=== PATIENT | female | born 1945 | race American Indian/Alaskan Native ===

== ENCOUNTER 2016-08-19 08:14 | Outpatient (CLI) | payer MEDICARE ==
[2016-08-19] MEDS ORDERED: XYLOCAINE TOPICAL 4% TP ONE ×2 (08:45→08:48)
== END 2016-08-19 08:15 | disposition home or self-care (01) ==
LOC: WOUND 08:14
PROVIDERS: ATTEND Surgery
DX: I87.312 Chronic venous hypertension (idiopathic) with ulcer of left lower extremity (principal); E11.622 Type 2 diabetes mellitus with other skin ulcer; L97.821 Non-pressure chronic ulcer of other part of left lower leg limited to breakdown of skin; J44.9 Chronic obstructive pulmonary disease, unspecified; I11.0 Hypertensive heart disease with heart failure; I50.9 Heart failure, unspecified; G47.30 Sleep apnea, unspecified; M19.90 Unspecified osteoarthritis, unspecified site; E05.90 Thyrotoxicosis, unspecified without thyrotoxic crisis or storm; F03.90 Unspecified dementia, unspecified severity, without behavioral disturbance, psychotic disturbance, mood disturbance, and anxiety; F32.9 Major depressive disorder, single episode, unspecified; Z90.710 Acquired absence of both cervix and uterus; Z87.891 Personal history of nicotine dependence
CPT/HCPCS: 11042; 11045; G0463

== ENCOUNTER 2016-08-26 09:20 | Outpatient (CLI) | payer MEDICARE ==
[2016-08-26] MEDS ORDERED: XYLOCAINE TOPICAL 4% TP ONE ×2 (09:50→10:08)
== END 2016-08-26 09:21 | disposition home or self-care (01) ==
LOC: WOUND 09:20
PROVIDERS: ATTEND Surgery
DX: I87.312 Chronic venous hypertension (idiopathic) with ulcer of left lower extremity (principal); E11.622 Type 2 diabetes mellitus with other skin ulcer; L97.821 Non-pressure chronic ulcer of other part of left lower leg limited to breakdown of skin; J44.9 Chronic obstructive pulmonary disease, unspecified; I11.0 Hypertensive heart disease with heart failure; I50.40 Unspecified combined systolic (congestive) and diastolic (congestive) heart failure; G47.30 Sleep apnea, unspecified; E05.90 Thyrotoxicosis, unspecified without thyrotoxic crisis or storm; M19.90 Unspecified osteoarthritis, unspecified site; F03.90 Unspecified dementia, unspecified severity, without behavioral disturbance, psychotic disturbance, mood disturbance, and anxiety; F32.9 Major depressive disorder, single episode, unspecified; Z90.710 Acquired absence of both cervix and uterus; Z87.891 Personal history of nicotine dependence
CPT/HCPCS: 99214; G0463

== ENCOUNTER 2016-09-02 10:00 | Outpatient (CLI) | payer MEDICARE | END 2016-09-02 10:01 | disposition home or self-care (01) | LOC: WOUND 10:00 | PROVIDERS: ATTEND Surgery | DX: I87.312 Chronic venous hypertension (idiopathic) with ulcer of left lower extremity (principal); E11.622 Type 2 diabetes mellitus with other skin ulcer; L97.821 Non-pressure chronic ulcer of other part of left lower leg limited to breakdown of skin; I11.0 Hypertensive heart disease with heart failure; I50.40 Unspecified combined systolic (congestive) and diastolic (congestive) heart failure; J44.9 Chronic obstructive pulmonary disease, unspecified; F03.90 Unspecified dementia, unspecified severity, without behavioral disturbance, psychotic disturbance, mood disturbance, and anxiety; G47.30 Sleep apnea, unspecified; M19.90 Unspecified osteoarthritis, unspecified site; E05.90 Thyrotoxicosis, unspecified without thyrotoxic crisis or storm; F32.9 Major depressive disorder, single episode, unspecified; Z90.710 Acquired absence of both cervix and uterus; Z87.891 Personal history of nicotine dependence | CPT/HCPCS: 99214; G0463 ==

== ENCOUNTER 2016-11-18 10:00 | Outpatient (CLI) | payer MEDICARE ==
[2016-11-18] MEDS ORDERED: XYLOCAINE TOPICAL 4% TP ONE (10:58)
[2016-11-19] MEDS ORDERED: XYLOCAINE TOPICAL 4% TP ONE (17:07)
== END 2016-11-18 10:01 | disposition home or self-care (01) ==
LOC: WOUND 10:00
PROVIDERS: ATTEND Surgery
DX: E11.621 Type 2 diabetes mellitus with foot ulcer (principal); L97.521 Non-pressure chronic ulcer of other part of left foot limited to breakdown of skin; J44.9 Chronic obstructive pulmonary disease, unspecified; I11.0 Hypertensive heart disease with heart failure; I50.20 Unspecified systolic (congestive) heart failure; F03.90 Unspecified dementia, unspecified severity, without behavioral disturbance, psychotic disturbance, mood disturbance, and anxiety; G47.30 Sleep apnea, unspecified; M19.90 Unspecified osteoarthritis, unspecified site; E05.90 Thyrotoxicosis, unspecified without thyrotoxic crisis or storm; F32.9 Major depressive disorder, single episode, unspecified; Z87.891 Personal history of nicotine dependence
CPT/HCPCS: 11042; G0463

== ENCOUNTER 2016-11-25 09:56 | Outpatient (CLI) | payer MEDICARE ==
[2016-11-25] MEDS ORDERED: XYLOCAINE TOPICAL 4% TP ONE ×2 (10:31→10:42)
== END 2016-11-25 09:57 | disposition home or self-care (01) ==
LOC: WOUND 09:56
PROVIDERS: ATTEND Surgery
DX: E11.621 Type 2 diabetes mellitus with foot ulcer (principal); L97.521 Non-pressure chronic ulcer of other part of left foot limited to breakdown of skin; E11.622 Type 2 diabetes mellitus with other skin ulcer; L97.821 Non-pressure chronic ulcer of other part of left lower leg limited to breakdown of skin; J44.9 Chronic obstructive pulmonary disease, unspecified; I11.0 Hypertensive heart disease with heart failure; I50.9 Heart failure, unspecified; F03.90 Unspecified dementia, unspecified severity, without behavioral disturbance, psychotic disturbance, mood disturbance, and anxiety; M19.90 Unspecified osteoarthritis, unspecified site; F32.9 Major depressive disorder, single episode, unspecified; Z90.710 Acquired absence of both cervix and uterus; Z87.891 Personal history of nicotine dependence

== ENCOUNTER 2016-12-02 10:42 | Outpatient (CLI) | payer MEDICARE ==
[2016-12-02] MEDS ORDERED: XYLOCAINE TOPICAL 4% TP ONE (12:00)
== END 2016-12-02 10:43 | disposition home or self-care (01) ==
LOC: WOUND 10:42
PROVIDERS: ATTEND Surgery
DX: E11.621 Type 2 diabetes mellitus with foot ulcer (principal); L97.521 Non-pressure chronic ulcer of other part of left foot limited to breakdown of skin; I11.0 Hypertensive heart disease with heart failure; I50.9 Heart failure, unspecified; J44.9 Chronic obstructive pulmonary disease, unspecified; F03.90 Unspecified dementia, unspecified severity, without behavioral disturbance, psychotic disturbance, mood disturbance, and anxiety; G47.30 Sleep apnea, unspecified; E11.69 Type 2 diabetes mellitus with other specified complication; M19.90 Unspecified osteoarthritis, unspecified site; E05.90 Thyrotoxicosis, unspecified without thyrotoxic crisis or storm; F32.9 Major depressive disorder, single episode, unspecified; Z90.710 Acquired absence of both cervix and uterus; Z87.891 Personal history of nicotine dependence

== ENCOUNTER 2016-12-09 08:38 | Outpatient (CLI) | payer MEDICARE ==
[2016-12-09] MEDS ORDERED: XYLOCAINE TOPICAL 4% TP ONE (09:27)
== END 2016-12-09 08:39 | disposition home or self-care (01) ==
LOC: WOUND 08:38
PROVIDERS: ATTEND Surgery
DX: E11.621 Type 2 diabetes mellitus with foot ulcer (principal); L97.521 Non-pressure chronic ulcer of other part of left foot limited to breakdown of skin; J44.9 Chronic obstructive pulmonary disease, unspecified; I11.0 Hypertensive heart disease with heart failure; I50.9 Heart failure, unspecified; G47.30 Sleep apnea, unspecified; M19.90 Unspecified osteoarthritis, unspecified site; E05.90 Thyrotoxicosis, unspecified without thyrotoxic crisis or storm; F32.9 Major depressive disorder, single episode, unspecified; F03.90 Unspecified dementia, unspecified severity, without behavioral disturbance, psychotic disturbance, mood disturbance, and anxiety; Z90.710 Acquired absence of both cervix and uterus; Z87.891 Personal history of nicotine dependence

== ENCOUNTER 2016-12-30 14:21 | Outpatient (CLI) | payer MEDICARE ==
[2016-12-30] MEDS ORDERED: XYLOCAINE TOPICAL 4% TP ONE ×2 (14:46→14:51)
== END 2016-12-30 14:22 | disposition home or self-care (01) ==
LOC: WOUND 14:21
PROVIDERS: ATTEND Surgery
DX: E11.621 Type 2 diabetes mellitus with foot ulcer (principal); L97.521 Non-pressure chronic ulcer of other part of left foot limited to breakdown of skin; J44.9 Chronic obstructive pulmonary disease, unspecified; I11.0 Hypertensive heart disease with heart failure; I50.9 Heart failure, unspecified; M19.90 Unspecified osteoarthritis, unspecified site; E05.90 Thyrotoxicosis, unspecified without thyrotoxic crisis or storm; F32.9 Major depressive disorder, single episode, unspecified; F03.90 Unspecified dementia, unspecified severity, without behavioral disturbance, psychotic disturbance, mood disturbance, and anxiety; Z90.710 Acquired absence of both cervix and uterus; Z87.891 Personal history of nicotine dependence

== ENCOUNTER 2017-01-06 08:54 | Outpatient (CLI) | payer MEDICARE ==
[2017-01-06] MEDS ORDERED: XYLOCAINE TOPICAL 4% TP ONE (09:52)
== END 2017-01-06 08:55 | disposition home or self-care (01) ==
LOC: WOUND 08:54
PROVIDERS: ATTEND Surgery
DX: E11.621 Type 2 diabetes mellitus with foot ulcer (principal); L97.521 Non-pressure chronic ulcer of other part of left foot limited to breakdown of skin; E11.622 Type 2 diabetes mellitus with other skin ulcer; L97.821 Non-pressure chronic ulcer of other part of left lower leg limited to breakdown of skin; J44.9 Chronic obstructive pulmonary disease, unspecified; I11.0 Hypertensive heart disease with heart failure; I50.9 Heart failure, unspecified; F03.90 Unspecified dementia, unspecified severity, without behavioral disturbance, psychotic disturbance, mood disturbance, and anxiety; G47.30 Sleep apnea, unspecified; M19.90 Unspecified osteoarthritis, unspecified site; E05.90 Thyrotoxicosis, unspecified without thyrotoxic crisis or storm; F32.9 Major depressive disorder, single episode, unspecified; Z90.710 Acquired absence of both cervix and uterus; Z87.891 Personal history of nicotine dependence

== ENCOUNTER 2017-01-20 11:02 | Outpatient (CLI) | payer MEDICARE ==
[2017-01-20] MEDS ORDERED: XYLOCAINE TOPICAL 4% TP ONE (11:12)
== END 2017-01-20 11:03 | disposition home or self-care (01) ==
LOC: WOUND 11:02
PROVIDERS: ATTEND Surgery
DX: E11.621 Type 2 diabetes mellitus with foot ulcer (principal); E11.622 Type 2 diabetes mellitus with other skin ulcer; L97.521 Non-pressure chronic ulcer of other part of left foot limited to breakdown of skin; L97.821 Non-pressure chronic ulcer of other part of left lower leg limited to breakdown of skin; J44.9 Chronic obstructive pulmonary disease, unspecified; I11.0 Hypertensive heart disease with heart failure; I50.9 Heart failure, unspecified; F03.90 Unspecified dementia, unspecified severity, without behavioral disturbance, psychotic disturbance, mood disturbance, and anxiety; M19.90 Unspecified osteoarthritis, unspecified site; F32.9 Major depressive disorder, single episode, unspecified; E03.9 Hypothyroidism, unspecified; G47.30 Sleep apnea, unspecified; Z90.710 Acquired absence of both cervix and uterus; Z87.891 Personal history of nicotine dependence

== ENCOUNTER 2017-01-27 08:27 | Outpatient (CLI) | payer MEDICARE ==
[2017-01-27] MEDS ORDERED: XYLOCAINE TOPICAL 4% TP ONE (08:42)
== END 2017-01-27 08:28 | disposition home or self-care (01) ==
LOC: WOUND 08:27
PROVIDERS: ATTEND Surgery
DX: E11.621 Type 2 diabetes mellitus with foot ulcer (principal); L97.521 Non-pressure chronic ulcer of other part of left foot limited to breakdown of skin; J44.9 Chronic obstructive pulmonary disease, unspecified; I11.0 Hypertensive heart disease with heart failure; I50.9 Heart failure, unspecified; F03.90 Unspecified dementia, unspecified severity, without behavioral disturbance, psychotic disturbance, mood disturbance, and anxiety; G47.30 Sleep apnea, unspecified; M19.90 Unspecified osteoarthritis, unspecified site; F32.9 Major depressive disorder, single episode, unspecified; E05.90 Thyrotoxicosis, unspecified without thyrotoxic crisis or storm; Z90.710 Acquired absence of both cervix and uterus; Z87.891 Personal history of nicotine dependence

== ENCOUNTER 2017-02-10 09:17 | Outpatient (CLI) | payer MEDICARE ==
[2017-02-10] MEDS ORDERED: AD OINTMENT TP ONE (09:49)
[2017-02-10] MEDS ORDERED: XYLOCAINE TOPICAL 4% TP ONE ×2 (09:49→09:53)
[2017-02-10] MEDS ORDERED: AD OINTMENT TP SCH (10:00)
== END 2017-02-10 09:18 | disposition home or self-care (01) ==
LOC: WOUND 09:17
PROVIDERS: ATTEND Surgery
DX: E11.621 Type 2 diabetes mellitus with foot ulcer (principal); L97.521 Non-pressure chronic ulcer of other part of left foot limited to breakdown of skin; E11.622 Type 2 diabetes mellitus with other skin ulcer; L97.821 Non-pressure chronic ulcer of other part of left lower leg limited to breakdown of skin; J44.9 Chronic obstructive pulmonary disease, unspecified; I11.0 Hypertensive heart disease with heart failure; I50.9 Heart failure, unspecified; F03.90 Unspecified dementia, unspecified severity, without behavioral disturbance, psychotic disturbance, mood disturbance, and anxiety; G47.30 Sleep apnea, unspecified; M19.90 Unspecified osteoarthritis, unspecified site; E03.9 Hypothyroidism, unspecified; F32.9 Major depressive disorder, single episode, unspecified; Z90.710 Acquired absence of both cervix and uterus; Z87.891 Personal history of nicotine dependence
CPT/HCPCS: A6250

== ENCOUNTER 2017-02-17 08:35 | Outpatient (CLI) | payer MEDICARE ==
[2017-02-17] MEDS ORDERED: XYLOCAINE TOPICAL 4% TP ONE ×2 (08:49→09:47)
== END 2017-02-17 08:36 | disposition home or self-care (01) ==
LOC: WOUND 08:35
PROVIDERS: ATTEND Surgery
DX: E11.621 Type 2 diabetes mellitus with foot ulcer (principal); L97.521 Non-pressure chronic ulcer of other part of left foot limited to breakdown of skin; E11.622 Type 2 diabetes mellitus with other skin ulcer; L97.821 Non-pressure chronic ulcer of other part of left lower leg limited to breakdown of skin; J44.9 Chronic obstructive pulmonary disease, unspecified; I11.0 Hypertensive heart disease with heart failure; I50.9 Heart failure, unspecified; F03.90 Unspecified dementia, unspecified severity, without behavioral disturbance, psychotic disturbance, mood disturbance, and anxiety; G47.30 Sleep apnea, unspecified; M19.90 Unspecified osteoarthritis, unspecified site; E03.9 Hypothyroidism, unspecified; F32.9 Major depressive disorder, single episode, unspecified; Z87.891 Personal history of nicotine dependence; Z90.710 Acquired absence of both cervix and uterus

== ENCOUNTER 2017-02-24 08:28 | Outpatient (CLI) | payer MEDICARE ==
[2017-02-24] MEDS ORDERED: XYLOCAINE TOPICAL 4% TP ONE (08:40)
== END 2017-02-24 08:29 | disposition home or self-care (01) ==
LOC: WOUND 08:28
PROVIDERS: ATTEND Surgery
DX: E11.621 Type 2 diabetes mellitus with foot ulcer (principal); L97.521 Non-pressure chronic ulcer of other part of left foot limited to breakdown of skin; E11.622 Type 2 diabetes mellitus with other skin ulcer; L97.821 Non-pressure chronic ulcer of other part of left lower leg limited to breakdown of skin; J44.9 Chronic obstructive pulmonary disease, unspecified; I11.0 Hypertensive heart disease with heart failure; I50.9 Heart failure, unspecified; F03.90 Unspecified dementia, unspecified severity, without behavioral disturbance, psychotic disturbance, mood disturbance, and anxiety; M19.90 Unspecified osteoarthritis, unspecified site; F32.9 Major depressive disorder, single episode, unspecified; Z90.710 Acquired absence of both cervix and uterus; Z87.891 Personal history of nicotine dependence

== ENCOUNTER 2017-03-17 13:54 | Outpatient (CLI) | payer MEDICARE ==
[2017-03-17] MEDS ORDERED: XYLOCAINE TOPICAL 4% TP ONE (14:09)
[2017-03-19] MEDS ORDERED: XYLOCAINE TOPICAL 4% TP ONE (13:18)
== END 2017-03-17 13:55 | disposition home or self-care (01) ==
LOC: WOUND 13:54
PROVIDERS: ATTEND Surgery
DX: E11.621 Type 2 diabetes mellitus with foot ulcer (principal); L97.521 Non-pressure chronic ulcer of other part of left foot limited to breakdown of skin; E11.622 Type 2 diabetes mellitus with other skin ulcer; L97.821 Non-pressure chronic ulcer of other part of left lower leg limited to breakdown of skin; J44.9 Chronic obstructive pulmonary disease, unspecified; I11.0 Hypertensive heart disease with heart failure; I50.9 Heart failure, unspecified; E03.9 Hypothyroidism, unspecified; F03.90 Unspecified dementia, unspecified severity, without behavioral disturbance, psychotic disturbance, mood disturbance, and anxiety; M19.90 Unspecified osteoarthritis, unspecified site; F32.9 Major depressive disorder, single episode, unspecified; Z90.710 Acquired absence of both cervix and uterus; Z87.891 Personal history of nicotine dependence

== ENCOUNTER 2017-04-07 14:21 | Outpatient (CLI) | payer MEDICARE ==
[2017-04-07] MEDS ORDERED: XYLOCAINE TOPICAL 4% TP ONE (16:00)
== END 2017-04-07 14:22 | disposition home or self-care (01) ==
LOC: WOUND 14:21
PROVIDERS: ATTEND Surgery
DX: E11.621 Type 2 diabetes mellitus with foot ulcer (principal); L97.521 Non-pressure chronic ulcer of other part of left foot limited to breakdown of skin; E11.622 Type 2 diabetes mellitus with other skin ulcer; L97.821 Non-pressure chronic ulcer of other part of left lower leg limited to breakdown of skin; J44.9 Chronic obstructive pulmonary disease, unspecified; I11.0 Hypertensive heart disease with heart failure; I50.9 Heart failure, unspecified; E05.90 Thyrotoxicosis, unspecified without thyrotoxic crisis or storm; F03.90 Unspecified dementia, unspecified severity, without behavioral disturbance, psychotic disturbance, mood disturbance, and anxiety; M19.90 Unspecified osteoarthritis, unspecified site; F32.9 Major depressive disorder, single episode, unspecified; Z90.710 Acquired absence of both cervix and uterus; Z87.891 Personal history of nicotine dependence

== ENCOUNTER 2017-04-14 08:36 | Outpatient (CLI) | payer MEDICARE ==
[2017-04-14] MEDS ORDERED: XYLOCAINE TOPICAL 4% TP ONE ×2 (08:46→08:49)
== END 2017-04-14 08:37 | disposition home or self-care (01) ==
LOC: WOUND 08:36
PROVIDERS: ATTEND Surgery
DX: E11.622 Type 2 diabetes mellitus with other skin ulcer (principal); L97.821 Non-pressure chronic ulcer of other part of left lower leg limited to breakdown of skin; E11.621 Type 2 diabetes mellitus with foot ulcer; L97.521 Non-pressure chronic ulcer of other part of left foot limited to breakdown of skin; I11.0 Hypertensive heart disease with heart failure; I50.9 Heart failure, unspecified; J44.9 Chronic obstructive pulmonary disease, unspecified; F03.90 Unspecified dementia, unspecified severity, without behavioral disturbance, psychotic disturbance, mood disturbance, and anxiety; G47.30 Sleep apnea, unspecified; M19.90 Unspecified osteoarthritis, unspecified site; E05.90 Thyrotoxicosis, unspecified without thyrotoxic crisis or storm; F32.9 Major depressive disorder, single episode, unspecified; Z90.710 Acquired absence of both cervix and uterus; Z87.891 Personal history of nicotine dependence
CPT/HCPCS: 99215; G0463

== ENCOUNTER 2017-04-21 11:41 | Outpatient (CLI) | payer MEDICARE ==
[2017-04-21] MEDS ORDERED: XYLOCAINE TOPICAL 4% TP ONE ×2 (11:58→12:08)
== END 2017-04-21 11:42 | disposition home or self-care (01) ==
LOC: WOUND 11:41
PROVIDERS: ATTEND Surgery
DX: E11.622 Type 2 diabetes mellitus with other skin ulcer (principal); L97.821 Non-pressure chronic ulcer of other part of left lower leg limited to breakdown of skin; E11.621 Type 2 diabetes mellitus with foot ulcer; L97.521 Non-pressure chronic ulcer of other part of left foot limited to breakdown of skin; J44.9 Chronic obstructive pulmonary disease, unspecified; I11.0 Hypertensive heart disease with heart failure; I50.9 Heart failure, unspecified; F03.90 Unspecified dementia, unspecified severity, without behavioral disturbance, psychotic disturbance, mood disturbance, and anxiety; G47.30 Sleep apnea, unspecified; M19.90 Unspecified osteoarthritis, unspecified site; E05.90 Thyrotoxicosis, unspecified without thyrotoxic crisis or storm; F32.9 Major depressive disorder, single episode, unspecified; Z90.710 Acquired absence of both cervix and uterus; Z87.891 Personal history of nicotine dependence

== ENCOUNTER 2017-05-05 09:21 | Outpatient (CLI) | payer MEDICARE ==
[2017-05-05] MEDS ORDERED: XYLOCAINE TOPICAL 4% TP ONE ×2 (09:35→09:36)
== END 2017-05-05 09:22 | disposition home or self-care (01) ==
LOC: WOUND 09:21
PROVIDERS: ATTEND Surgery
DX: E11.622 Type 2 diabetes mellitus with other skin ulcer (principal); L97.821 Non-pressure chronic ulcer of other part of left lower leg limited to breakdown of skin; E11.621 Type 2 diabetes mellitus with foot ulcer; L97.521 Non-pressure chronic ulcer of other part of left foot limited to breakdown of skin; J44.9 Chronic obstructive pulmonary disease, unspecified; I11.0 Hypertensive heart disease with heart failure; I50.9 Heart failure, unspecified; F03.90 Unspecified dementia, unspecified severity, without behavioral disturbance, psychotic disturbance, mood disturbance, and anxiety; G47.30 Sleep apnea, unspecified; M19.90 Unspecified osteoarthritis, unspecified site; E05.90 Thyrotoxicosis, unspecified without thyrotoxic crisis or storm; F32.9 Major depressive disorder, single episode, unspecified; Z90.710 Acquired absence of both cervix and uterus; Z87.891 Personal history of nicotine dependence

== ENCOUNTER 2017-05-12 09:25 | Outpatient (CLI) | payer MEDICARE ==
[2017-05-12] MEDS ORDERED: XYLOCAINE TOPICAL 4% TP ONE (09:36)
== END 2017-05-12 09:26 | disposition home or self-care (01) ==
LOC: WOUND 09:25
PROVIDERS: ATTEND Surgery
DX: E11.622 Type 2 diabetes mellitus with other skin ulcer (principal); L97.821 Non-pressure chronic ulcer of other part of left lower leg limited to breakdown of skin; E11.621 Type 2 diabetes mellitus with foot ulcer; L97.521 Non-pressure chronic ulcer of other part of left foot limited to breakdown of skin; J44.9 Chronic obstructive pulmonary disease, unspecified; I11.0 Hypertensive heart disease with heart failure; I50.9 Heart failure, unspecified; F03.90 Unspecified dementia, unspecified severity, without behavioral disturbance, psychotic disturbance, mood disturbance, and anxiety; G47.30 Sleep apnea, unspecified; M19.90 Unspecified osteoarthritis, unspecified site; F32.9 Major depressive disorder, single episode, unspecified; Z90.710 Acquired absence of both cervix and uterus; Z87.891 Personal history of nicotine dependence
CPT/HCPCS: 99215; G0463

== ENCOUNTER 2017-10-26 09:14 | Day surgery (SDC) | payer MEDICARE ==
[~2017-10-26 09:14] MED LIST: ANCEF/STERILE WATER 2 GM/20 ML 2 GM/20 ML SYRINGE IV NR; NACL 0.9% 1000 ML 1,000 ML IV SCH
--- NOTE | 2017-10-26 11:08 | Anesthesia Consultation ---
Anesthesia Consult and Med Hx Date of service: 10/26/17 (Amputation toes) - Airway Anesthetic Teeth Evaluation: Edentulous ROM Head & Neck: Adequate Mental/Hyoid Distance: Adequate Mallampati Class: Class II Intubation Access Assessment: Probably Good - Pulmonary Exam CTA: No (Expiratory wheezing) - Pre-Operative Health Status ASA Pre-Surgery Classification: ASA4 Nerve Block: Ank - Pulmonary Hx Smoking: Yes SOB: Yes (SOB at rest with head up at 45 degrees) COPD: Yes (Uses O2 at 2l/min) Home Oxygen Therapy: Yes (Nasal cannula at 2 LPM, BIPAP) Hx Sleep Apnea: Yes (Uses Trilogy Bipap) - Cardiovascular System Hx Hypertension: Yes (Pat hx) Hx Cardia Arrhythmia: Yes Hx Peripheral Vascular Disease: Yes - Central Nervous System Hx Neuromuscular Disorder: Yes (Spine abcess and unable to walk, wheel chair/ bedridden) CVA: Yes ("minor" 2000) Hx Back Pain: Yes Hx Psychiatric Problems: Yes - Gastrointestinal Hx Ulcer: Yes (Bleeding Ulcer has needed transfusion in the past) Hx Gastroesophageal Reflux Disease: Yes (Moderate to severe, better since medications) - Endocrine Hx Renal Disease: Yes (Off diaylsis for one month) Hx End Stage Renal Disease: Yes Hx Liver Disease: Yes Hx Insulin Dependent Diabetes: Yes - Hematic Hx Anemia: Yes - Other Systems Hx Cancer: No Hx Obesity: Yes (Morbid Obesity) - Additional Comments Anesthesia Medical History Comments: CHF: on going, ECHO May 2017, Right heart overload, EF 65-70%
[2017-10-26 11:32] LABS: Basophils # (Auto) 0.1 K/mm3 (0.0-0.1); Basophils % (Auto) 1.1 % (0.0-1.8); Eosinophils # (Auto) 0.4 K/mm3 (0.0-0.4); Eosinophils % (Auto) 3.4 % (0.0-4.3); Hematocrit 25.4 % (30.3-42.9); Lymphocytes # (Auto) 2.4 K/mm3 (1.2-5.4); Lymphocytes % (Auto) 23.1 % (13.4-35.0); Mean Corpuscular HGB Conc 31 % (30-34); Mean Corpuscular Hemoglobin 30 pg (28-32); Mean Corpuscular Volume 95 fl (79-97); Monocytes # (Auto) 0.6 K/mm3 (0.0-0.8); Monocytes % (Auto) 5.5 % (0.0-7.3); Platelet Count 345 K/mm3 (140-440); Red Blood Count 2.67 M/mm3 (3.65-5.03); Red Cell Distribution Width 15.3 % (13.2-15.2)
[2017-10-26] MEDS ORDERED: PEPCID IV ONE (11:45)
[2017-10-26 11:51] LABS: Calcium 8.8 mg/dL (8.4-10.2)
[2017-10-26] MEDS ORDERED: VERSED ONE ×2 (13:27→14:48)
[2017-10-26] MEDS ORDERED: MARCAINE 0.5% INFILTRATI ONE (13:27)
[2017-10-26] MEDS ORDERED: XYLOCAINE 1% 20 mL ONE (15:07)
[2017-10-26] MEDS ORDERED: XYLOCAINE 1% 20 mL INFILTRATI ONE (15:20)
[2017-10-26] MEDS ORDERED: NACL 0.9% IR ONE (15:20)
--- NOTE | 2017-10-26 15:55 | Short Stay Summary ---
Short Stay Documentation Date of service: 10/26/17 Narrative H&P: See H&P - History H&P: obtained from office - Allergies and Medications Current Medications: Allergies No Known Allergies Allergy (Unverified 08/19/16 08:47) Home Medications Medication Instructions Recorded Confirmed Last Taken Type Budesonide/Formoterol Fumarate 10.2 gm IH DAILY 10/26/17 10/26/17 10/26/17 07: 00 History [Symbicort 160-4.5 Mcg Inhaler] Cephalexin [Keflex] 500 mg PO QID 10/26/17 10/26/17 10/25/17 History Ergocalciferol (Vitamin D2) 50,000 unit PO QWEEK 10/26/17 10/26/17 10/20/17 History [Drisdol] Furosemide [Lasix] 20 mg PO DAILY 10/26/17 10/26/17 10/25/17 History Insulin NPH/Regular [Novolin 70/30] 38 unit SUB-Q QAM 10/26/17 10/26/17 Unknown History Latanoprost 0.005% 1 drop QHS 10/26/17 10/26/17 10/25/17 History Levothyroxine [Synthroid] 100 mcg PO QAM 10/26/17 10/26/17 10/25/17 History Megestrol [Megace] 20 mg PO QID 10/26/17 10/26/17 1 Week Ago History ~10/19/17 Midodrine [Proamatine] 2.5 mg PO TID 10/26/17 10/26/17 10/26/17 07:00 History Namzaric 28 mg-10 mg Capsule 1 tab PO DAILY 10/26/17 10/26/17 10/25/17 History Nephro-Robby Rx Tablet 0.8 mg PO DAILY 10/26/17 10/26/17 10/25/17 History Omeprazole Magnesium [PriLOSEC Otc] 20 mg PO QDAY 10/26/17 10/26/17 10/25/17 History Ondansetron [Zofran TAB] 4 mg PO Q8HR PRN 10/26/17 10/26/17 Unknown History Warfarin Sodium 2.5 mg PO DAILY 10/26/17 10/26/17 09/09/17 History Active Medications Cefazolin Sodium (Ancef/Sterile Water 2 Gm/20 Ml) 2 gm in 20 mls @ 80 mls/hr IV PREOP NR; Protocol Stop: 10/26/17 23:59 Sodium Chloride (Nacl 0.9% 1000 Ml) 1,000 mls @ 42 mls/hr IV DIRECT ESTEBAN Last Admin: 10/26/17 11:20 Dose: 42 mls/hr - Brief post op/procedure progress note Date of procedure: 10/26/17 Pre-op diagnosis: PVD with Right Second and Third Toe Gangrene Post-op diagnosis: same Procedure: Amputation of Right Second and Third Toes Anesthesia: regional Surgeon: YENNY DÍAZ Estimated blood loss: 50-100ml Pathology: list (right second and third toes) Specimen disposition: to lab Condition: stable - Disposition Condition at discharge: Good Disposition: [id number] HOME UNDER HOME [facility] Short Stay Discharge Plan Activity: other (okay to wash wounds with soap and water but do not soak in water) Wound: keep clean and dry, remove dressing (48 hours) Follow up with: YENNY DÍAZ MD [Staff Physician] - 14 Days Prescriptions: HYDROcodone/ACETAMINOPHEN [Cassandra 5-325 Tablet] 1 each PO Q6HR PRN #40 tablet PRN Reason: Pain , Severe (7-10)
--- NOTE | 2017-10-26 16:04 | Operative Report ---
Operative Report Operative Report: Date of Procedure: 10/26/2017 Pre-operative Diagnosis: PVD with Gangrene of Right Second and Third Toes Post-operative Diagnosis: Same Procedure(s): 1. Amputation of Right Second and Third Toe Surgeon: Ben Vázquez M.D. Cleaner Housekeeping: Mandeep Anesthesia: Regional Right Popliteal Block EBL: Minimal Counts: Correct Complications: None Condition: Stable Findings: Patient with ulceration and gangrene of right second and third toes. Wounds with healthy bleeding edges and no evidence of purulence or infection in the wound base. The wound was able to be closed without tension. Specimen: Right second and third toes were sent to pathology. Indication: The patient is a 72-year-old female with a history of diabetes who presented to our office gangrene and ulceration of her right second and third toe. Initially she was managing the wounds with Betadine however the wounds progressed and she is in need of a vegetation of the second and third toes of the right foot. She was given the risks, benefits, and alternative procedures and consented to the procedure. Description of Procedure: The patient was brought to the operating room and laid in supine position. She had a regional block that was performed in the preoperative area. After sedation was administered her right foot was then prepped and draped in normal sterile fashion. To checking that the block was adequate a 10 blade was used to make a circumferential incision around the base including the second and third toes. Cautery was then used to carry the dissection down to the proximal phalanx and a bone cutter was then used to transect the phalanx. A rongeur was then used to debride the bone back to the second and third metatarsal heads respectively. I then used curved Mayos to further debride the tendons and soft tissue within the wound. Flaps were made on the plantar and dorsal surface to ensure that there was no tension on the incision. The wound was then copiously irrigated with saline and then direct pressure and cautery were used to achieve hemostasis within the wound. Once hemostasis was achieved and closed in 2 layers using 2-0 Vicryl in interrupted fashion in the deep dermal layer and a combination of 2-0 Ethilon in interrupted vertical mattress fashion to take tension off of the wound and margie to reapproximate the skin. The wound was then dressed with Xeroform gauze, fluffs, Kerlix, and a 4 inch Manuel bandage. The patient tolerated the procedure well. All sponge, needle, instrument counts were correct. The patient was taken to the recovery area in stable condition.
[2017-10-26 16:59] VITALS: BP 114/77
--- NOTE | 2017-10-27 05:01 | Anesthesia Day of Surgery ---
Anesthesia Day of Surgery - Day of Surgery Patient Examined: Yes Patient H&P Reviewed: Yes Patient is NPO: Yes
--- NOTE | 2017-10-27 05:02 | Post Anesthesia Evaluation ---
- Post Anesthesia Evaluation Patient Participated: Yes Airway Patent: Yes Stable Respiratory Function: Yes Nausea/Vomiting: No Temp > 96.8F: Yes Pain Manageable: Yes Adequeate Hydration: Yes Anesthesia Complications: No Block Receding Appropriately: Yes (Patient given surgical block with intent for post-op analgesia.) Patient on Ventilator: No
== END 2017-10-26 18:10 | disposition home health service (06) ==
LOC: OR 09:14
PROVIDERS: ATTEND Surgery Vascular Surgery
DX: I96 Gangrene, not elsewhere classified (principal); I13.2 Hypertensive heart and chronic kidney disease with heart failure and with stage 5 chronic kidney disease, or end stage renal disease; E11.22 Type 2 diabetes mellitus with diabetic chronic kidney disease; N18.6 End stage renal disease; I50.9 Heart failure, unspecified; E11.621 Type 2 diabetes mellitus with foot ulcer; L97.519 Non-pressure chronic ulcer of other part of right foot with unspecified severity; G47.30 Sleep apnea, unspecified; J44.9 Chronic obstructive pulmonary disease, unspecified; F32.9 Major depressive disorder, single episode, unspecified; M19.90 Unspecified osteoarthritis, unspecified site; K21.9 Gastro-esophageal reflux disease without esophagitis; L08.9 Local infection of the skin and subcutaneous tissue, unspecified; E66.9 Obesity, unspecified; Z68.42 Body mass index [BMI] 45.0-49.9, adult; Z98.890 Other specified postprocedural states; Z86.2 Personal history of diseases of the blood and blood-forming organs and certain disorders involving the immune mechanism; Z90.710 Acquired absence of both cervix and uterus; Z79.4 Long term (current) use of insulin; Z79.899 Other long term (current) drug therapy; Z99.2 Dependence on renal dialysis
CPT/HCPCS: 28810; 36415; 80048; 82962; 85025; 88305; 88311; 99195; J0690; J2250; J7030